=== PATIENT | male | born 1970 ===

== ENCOUNTER 2016-12-24 16:43 | Inpatient (IN) ==
[2016-12-24] MEDS ORDERED: CLINDAMYCIN INJ 900 MG in PREMIX 1 EACH IV STA (17:13)
[2016-12-24] MEDS ORDERED: KETOROLAC 30 MG/1 ML VIAL IV STA (17:13)
[2016-12-24] MEDS ORDERED: ALBUTEROL/IPRATROPIUM 3 ML NEB RESP TX STA (17:17)
[2016-12-24] MEDS ORDERED: methylPREDNISolone SOD SUC 125 MG/2 ML VIAL IV STA (17:17)
--- NOTE | 2016-12-24 17:21 | Emergency Department Note ---
Arrival - Arrival Chief Complaint: Extremity Problem Stated Complaint: TRANSFER PSYCHIATRIC FOR EDEMA E ED Nursing Triage Note: PT TRANSFERRED FROM PSYCHIATRIC FOR EVALUATION OF EDEMA TO [facility]. PT STATES PAIN AND EDEMA HAS BEEN PRESENT X2 MONTHS. PSYCHIATRIC REPORTS UNABLE TO PALPATE A PULSE. PT IS INMATE AT [facility]. PT TOOK COUMADIN FOR HX OF DVT BUT NOT RECEIVING WHILE INCARCERATED Mode of Arrival: Stretcher Limitations: No Limitations Source: Patient Time Seen by Provider: 12/24/16 17:13 - History of Present Illness HPI Narrative: This 46-year-old [place] male inmate presents with a history of left lower extremity pain and swelling as well as redness from the knee down. Of note the patient does have a history of a DVT in that leg and has not been given any anticoagulants although he was taking Coumadin in the past. During the last month the patient has had intermittent chest pains as well as spitting up of some blood. He denies a pleuritic nature to the pain and also denies any history PTE. Associated with this is a sensation of dyspnea. He denies any chills or fever. Onset (ago): month(s) (Patient presents 2 months post onset of left leg problems ) Allergies/Adverse Reactions: Allergies Allergy/AdvReac Type Severity Reaction Status Date / Time No Known Allergies Allergy Verified 12/24/16 16:52 Review of System - Review of System 12 point system: reviewed and no additional remarkable complaints except as stated - Review of System Constitutional: Present: as per HPI Respiratory: Present: as per HPI Cardiovascular: Present: as per HPI Musculoskeletal: Present: as per HPI Medical,Surgical,& Family Hx - Medical History Other: History of: Miscellaneous Medical Problems (DVT) - Social History Smoking Status: Current every day smoker Frequency of Alcohol Use: None Type of Drug Use: None Exam Physical Examination: GENERAL: Well developed, well nourished [place] male in no acute distress. HEENT: Normocephalic. No trauma. Moist mucous membranes. EOMI. PERRLA. ENT NML NECK: Supple. No adenopathy. CARDIAC: Regular. No murmurs. Heart rate 86 CHEST: Clear to auscultation. No respiratory distress. O2 sat 100% ABDOMEN: Soft. Midepigastric tenderness, hypoactive bowel sounds. EXTREMITIES: No trauma. Normal ROM. Swollen, red, tender left lower extremity with positive Homans. S/P right BKA SKIN: No diaphoresis. No rash. NEURO: Alert. Oriented 3. Motor, sensory, vibratory intact. No focal deficits. Vital Signs: Vital Signs Temperature 98.6 F 12/24/16 17:01 Pulse Rate 91 H 12/24/16 17:40 Respiratory Rate 20 12/24/16 17:40 Blood Pressure 134/100 12/24/16 17:01 O2 Sat by Pulse Oximetry 100 12/24/16 16:44 Results - Labs CBC & BMP: 12/24/16 18:05 12/24/16 18:05 Labs: I have reviewed the laboratory and noted its gross normality. - Impressions EKG: Sinus rhythm at 93, normal SC interval and QRS duration. Right axis deviation nonspecific ST changes. No acute injury pattern noted. - Diagnostic Findings Procedure: Ultrasound: image reviewed by me, report reviewed by me (Left lower extremity reveals nonocclusive thrombus of the distal femoral and popliteal veins)
--- NOTE | 2016-12-24 17:46 | EKG Report ---
Stationary ECG Study [facility] ER Test Date: 12/24/2016 5:47:07 PM Pat Name: JAVON HECK Department: Room: Gender: M Secretary Book Keeper: : 1970 Requested by: Alton Lemus Order Number: [id number] Reading MD: ARCADIO RAUSCH Intervals [place] Rate: 93 P: 57 DC: 140 QRS: 105 QRSD: 90 T: -17 QT: 355 QTc: 405 Interpretive Statements SINUS RHYTHM MARKED RIGHT AXIS DEVIATION [id number] pattern, consider RV strain Electronically Signed On 12-24-16 19:24:07 CDT by ARCADIO RAUSCH [email or web address]
[2016-12-24] MEDS ORDERED: KETOROLAC 30 MG/1 ML VIAL ONE (17:51)
[2016-12-24] MEDS ORDERED: methylPREDNISolone SOD SUC 125 MG/2 ML VIAL ONE (17:51)
[2016-12-24] MEDS ORDERED: CLINDAMYCIN INJ 50 ML IV ONE (17:51)
--- NOTE | 2016-12-24 17:53 | XRay Report ---
Portable chest. Indication: Chest pain. Comparison: February 02, 2008. The heart is enlarged and has increased in size. There is left ventricular hypertrophy. The film was obtained in expiration. The pulmonary vasculature is normal. The lung wayne are clear. The osseous structures are unremarkable. Impression: Interval increase in heart size. PROCEDURE INTERPRETED AT [facility] DEPARTMENT OF RADIOLOGY Final Report Signed by: Dr. Connie Durham
[2016-12-24 18:08] LABS: Basophils % 0.3 % (0.0-0.8); Eosinophils # 0.2 10*3/uL (0.0-0.87); Eosinophils % 3.1 % (0.00-10.9); Hematocrit 43.5 VOL% (42.0-52.0); Hemoglobin 15.1 GM/DL (14.0-18.0); Immature Granulocytes % 0.3 %; Immature Granulocytes Absolute 0.02 #; Lymphocytes # 1.7 10*3/uL (1.4-4.0); Lymphocytes % 27.3 % (21.2-54.2); Mean Corpuscular HGB Conc 34.7 GM/DL (32-36); Mean Corpuscular Hemoglobin 33 PG (27-34); Mean Corpuscular Volume 93.5 FL (87-102); Mean Platelet Volume 9.4 FL (9.6-12.0); Monocytes # 0.5 10*3/uL (0.11-0.8); Monocytes % 8.9 % (1.7-12.7); Neutrophils # 3.7 10*3/uL (1.4-7.4); Neutrophils % 60.1 % (38.7-73.9); Platelet Count 173 T/CUMM (130-400); Red Blood Count 4.65 MC/CUMM (3.8-5.5); Red Cell Distribution Width 13.1 % (9.3-17.3); White Blood Count 6.1 T/CUMM (4-12)
[2016-12-24 18:22] LABS: D-Dimer <= 0.5 MG/L FEU; PT Patient Result 10.4 SECS
[2016-12-24 18:36] LABS: Alanine Aminotransferase 23 U/L (16-61); Albumin 4.3 G/DL (3.4-5.0); Alkaline Phosphatase 91 U/L (45-117); Aspartate Amino Transferase 13 U/L (0-37); Blood Urea Nitrogen 13 MG/DL (7-18); Calcium 9.2 MG/DL (8.5-10.1); Glucose 89 MG/DL (74-106); Osmolality,Calculated 281.1 MOS/KG (273-304); Potassium 3.7 MMOL/L (3.5-5.1); Sodium 142 MMOL/L (136-145); Total Protein 8.1 G/DL (6.4-8.3); Troponin I Only < 0.015 NG/ML (0.00-0.045)
--- NOTE | 2016-12-24 19:08 | Ultrasound Report ---
Left lower extremity venous Doppler. Grayscale, color-flow, and spectral analysis performed and interpreted. Indication: Lower extremity swelling and redness. There is nonocclusive thrombus seen in the distal femoral vein and the popliteal vein. The common femoral vein, greater saphenous vein, and proximal and mid superficial femoral vein are patent. Impression: Nonocclusive thrombus of the distal femoral vein and popliteal vein. These findings were discussed with the patient's nurse in the emergency room before dictation. PROCEDURE INTERPRETED AT [facility] DEPARTMENT OF RADIOLOGY Final Report Signed by: Dr. Connie Durham
[2016-12-24] MEDS ORDERED: ONDANSETRON 4 MG/2 ML VIAL IV PRN (20:42)
[2016-12-24] MEDS ORDERED: ACETAMINOPHEN 325 MG TABLET PO PRN (20:42)
[2016-12-24] MEDS ORDERED: ENOXAPARIN 100 MG/ML SYRINGE SUBCUT SCH (21:00)
--- NOTE | 2016-12-24 21:31 | Hospitalist History & Physical ---
Assessment and Plan (1) Cellulitis Status: Acute Current Visit: Yes (2) DVT (deep venous thrombosis) Status: Acute Assessment and plan: Our plan for this patient will be admitting him to our service. We will start him on to floor for cellulitis Coumadin and Lovenox for the DVT. Current Visit: Yes History of Present Illness Chief complaint: Leg pain History of present illness: Mr. Kim is a 46 year old male with past medical history significant for DVT and some knee problems who presents as a transfer from [facility]. Apparently patient is a prisoner there and was previously on Coumadin for a DVT. When patient was incarcerated he no longer took Coumadin. For the past several weeks has been noticing increased swelling and pain. His leg is also reddened. I was consulted to admit the patient for DVT and cellulitis. Allergies Allergy/AdvReac Type Severity Reaction Status Date / Time No Known Allergies Allergy Verified 12/24/16 16:52 Medical,Surgical,& Family Hx - Medical History Other: History of: Miscellaneous Medical Problems (DVT) - Surgical History Orthopedic Surgeries: Surgical HX of;: Orthopedic Surgery - Social History Smoking Status: Current every day smoker Frequency of Alcohol Use: None Type of Drug Use: None 12 point system: reviewed and no additional remarkable complaints except as stated Exam - Constitutional Vitals: Period Temp Pulse Resp BP Sys/Werner Pulse Ox Last 24 Hr 98.6 F-98.6 F 86-93 18-22 134-134/100-100 100 General appearance: normal weight - Head Head exam: Present: normal inspection - Eye Eye exam: Present: EOMI Pupils: Present: RUSS - ENT ENT exam: Present: normal exam - Neck Neck exam: Present: normal inspection - Respiratory Respiratory exam: Present: clear to auscultation bilaterally - Cardiovascular Cardiovascular exam: Present: regular rate and rhythm - GI/Abdominal GI/Abdominal exam: Present: normal bowel sounds - Extremities Exam Extremities exam: Present: other (Left lower extremity is erythematous and with edema) - Back Exam Back exam: Present: normal inspection - Neurological Exam Neurological exam: Present: alert, oriented X3 - Psychiatric Psychiatric exam: Present: normal affect, normal mood - Skin Skin exam: Present: erythema Results - Labs CBC & BMP: 12/24/16 18:05 12/24/16 18:05
[2016-12-24] MEDS ORDERED: WARFARIN 7.5 MG TABLET PO ONE (22:00)
[2016-12-25] MEDS: CEFTAROLINE 600 MG in SODIUM CHLORIDE 0.9% 100 ML IV SCH ×2 (00:18→13:53)
[2016-12-25] MEDS ORDERED: KETOROLAC 30 MG/1 ML VIAL IV PRN (00:27)
[2016-12-25 06:46] LABS: Calcium 8.7 MG/DL (8.5-10.1); Osmolality,Calculated 280.4 MOS/KG (273-304); Potassium 5.3 MMOL/L (3.5-5.1)
[2016-12-25 06:50] LABS: Basophils % 0.1 % (0.0-0.8); Eosinophils % 0.1 % (0.00-10.9); Hematocrit 45.2 VOL% (42.0-52.0); Immature Granulocytes % 0.5 %; Immature Granulocytes Absolute 0.04 #; Lymphocytes # 0.6 10*3/uL (1.4-4.0); Lymphocytes % 7.9 % (21.2-54.2); Mean Corpuscular HGB Conc 35.4 GM/DL (32-36); Mean Corpuscular Hemoglobin 33 PG (27-34); Mean Corpuscular Volume 92.4 FL (87-102); Mean Platelet Volume 11.3 FL (9.6-12.0); Monocytes # 0.2 10*3/uL (0.11-0.8); NRBC # 0.03 10*3/uL; Neutrophils # 6.9 10*3/uL (1.4-7.4); Neutrophils % 89.4 % (38.7-73.9); Platelet Count 131 T/CUMM (130-400); Red Blood Count 4.89 MC/CUMM (3.8-5.5); Red Cell Distribution Width 13.1 % (9.3-17.3); White Blood Count 7.7 T/CUMM (4-12)
[2016-12-25 07:32] LABS: INR 1.1; PT Patient Result 11.3 SECS
--- NOTE | 2016-12-25 08:18 | Hospitalist Progress Note ---
Assessment and Plan - Time spent with patient Time spent with patient: Less than 30 minutes (1) Cellulitis Status: Acute Assessment and plan: Continuing IV antibiotics. He appears to be clinically responding. Current Visit: Yes (2) DVT (deep venous thrombosis) Status: Acute Assessment and plan: We will continue anticoagulation. I will discontinue Lovenox and Coumadin at this time and place him on Xarelto 15 mg p.o. twice daily 21 days and then 20 mg p.o. daily. Current Visit: Yes Hospitalist: Subjective Interval history: Chart reviewed and patient examined. He did have some nausea and emesis last night according to him. His lower extremity swelling has improved. He denies any chest pain or shortness of breath. Exam - Constitutional Vitals: Period Temp Pulse Resp BP Sys/Werner Pulse Ox Last 24 Hr 96.9 F-98.6 F 69-97 18-22 124-178/64-110 92-100 General appearance: no acute distress - Head Head exam: Present: normocephalic, atraumatic - Eye Eye exam: Present: EOMI Pupils: Present: RUSS - ENT ENT exam: Present: normal exam - Neck Neck exam: Present: normal inspection - Respiratory Respiratory exam: Present: clear to auscultation bilaterally. Absent: rales, rhonchi, wheezes - Cardiovascular Cardiovascular exam: Present: regular rate and rhythm. Absent: systolic murmur , tachycardia - GI/Abdominal GI/Abdominal exam: Present: normal bowel sounds, soft. Absent: mass, tenderness , rebound - Extremities Exam Extremities exam: Present: other (Tender swollen left lower extremity) - Back Exam Back exam: Present: normal inspection - Neurological Exam Neurological exam: Present: alert, oriented X3, CN II-XII intact. Absent: motor sensory deficit - Psychiatric Psychiatric exam: Present: normal affect, normal mood. Absent: agitated, anxious - Skin Skin exam: Present: warm, dry. Absent: rash Results - Labs CBC & BMP: 12/25/16 05:52 12/25/16 05:52 Lab Results: I have reviewed the past 24 hour labs
[2016-12-25] MEDS: PANTOPRAZOLE 40 MG TABLET PO SCH (09:10)
[2016-12-25] MEDS: SODIUM CHLORIDE 0.9% 1,000 ML IV SCH ×2 (09:12→18:26)
[2016-12-25] MEDS: RIVAROXABAN 15 MG TABLET PO SCH (16:32)
[2016-12-25] MEDS ORDERED: WARFARIN 7.5 MG TABLET PO SCH (18:00)
[2016-12-25] MEDS: AMOXICILLIN/CLAV 875 MG TABLET PO SCH (20:15)
[2016-12-26 05:45] LABS: Basophils % 0.3 % (0.0-0.8); Eosinophils # 0.1 10*3/uL (0.0-0.87); Eosinophils % 1.3 % (0.00-10.9); Hematocrit 39.4 VOL% (42.0-52.0); Hemoglobin 13.7 GM/DL (14.0-18.0); Immature Granulocytes % 0.1 %; Immature Granulocytes Absolute 0.01 #; Lymphocytes # 2.6 10*3/uL (1.4-4.0); Lymphocytes % 34.6 % (21.2-54.2); Mean Corpuscular HGB Conc 34.8 GM/DL (32-36); Mean Corpuscular Hemoglobin 33 PG (27-34); Mean Platelet Volume 9.6 FL (9.6-12.0); Monocytes # 0.8 10*3/uL (0.11-0.8); Monocytes % 10.6 % (1.7-12.7); Neutrophils % 53.1 % (38.7-73.9); Platelet Count 181 T/CUMM (130-400); Red Blood Count 4.19 MC/CUMM (3.8-5.5); Red Cell Distribution Width 13.1 % (9.3-17.3); White Blood Count 7.5 T/CUMM (4-12)
[2016-12-26 06:13] LABS: Calcium 8.1 MG/DL (8.5-10.1)
[2016-12-26 06:14] LABS: Osmolality,Calculated 282.1 MOS/KG (273-304)
--- NOTE | 2016-12-26 08:24 | Discharge Summary ---
Hospital Course - Hospital Course Hospital Course: 46-year-old male with a past medical history significant DVT who presented with several weeks of increased pain and swelling of his left leg. It was also reddened. He was admitted for possible cellulitis and DVT. Venous Doppler did confirm a nonocclusive thrombus of the distal femoral vein and popliteal vein of the left lower extremity. He was initially placed on Lovenox and Coumadin as well as cultured and placed on IV antibiotics. His white count was normal and he had no fever. He was converted to oral antibiotics and in lieu of Lovenox and Coumadin was placed on Xarelto. He had significant improvement in swelling of his left lower extremity and is remained afebrile and is felt that he had reached maximal benefit from hospital stay and can now be discharged with outpatient follow-up. - Time spent with patient Time with patient DS: Less than 30 minutes Diagnosis - Discharge Diagnosis (1) Cellulitis Status: Acute (2) DVT (deep venous thrombosis) Status: Acute Discharge Plan - Discharge Data Disposition: Disch To Home/Self Care Condition at Discharge: Stable Discharge Diet: advance to your usual diet Activity: resume usual activities as tolerated Hygiene: no restrictions Weight Bearing at Discharge: full weight bearing Driving: no restrictions Contact your physician if you experience:: fever over 101, Redness or swelling, Shortness of breath, pain uncontrolled by pain medications - Discharge Medications New Rivaroxaban [Xarelto] 15 mg PO BID W/MEALS #40 tablet Amoxicillin/Clav Tab [Augmentin Tab] 875 mg PO BID #14 tablet - Follow Up or Referral Follow Up: [facility] [Other] - 3 Days - Forms/Instructions Exam - Constitutional Vitals: Period Temp Pulse Resp BP Sys/Werner Pulse Ox Last 24 Hr 96.8 F-98.1 F 67-86 18-20 100-144/56-96 96-100 General appearance: no acute distress - Head Head exam: Present: normocephalic, atraumatic - Eye Eye exam: Present: EOMI Pupils: Present: RUSS - ENT ENT exam: Present: normal exam - Neck Neck exam: Present: normal inspection - Respiratory Respiratory exam: Present: clear to auscultation bilaterally. Absent: rales, rhonchi, wheezes - Cardiovascular Cardiovascular exam: Present: regular rate and rhythm. Absent: systolic murmur , tachycardia - GI/Abdominal GI/Abdominal exam: Present: normal bowel sounds, soft. Absent: mass, tenderness , rebound - Extremities Exam Extremities exam: Present: full ROM, edema (Edema left lower extremity greater than right). Absent: calf tenderness - Back Exam Back exam: Present: normal inspection - Neurological Exam Neurological exam: Present: alert, oriented X3, CN II-XII intact. Absent: motor sensory deficit - Psychiatric Psychiatric exam: Present: normal affect, normal mood. Absent: agitated, anxious - Skin Skin exam: Present: warm, dry. Absent: erythema Discharge Results Procedures and tests throughout hospitalization: Pending Orders 12/24/16 17:33 Blood Culture Stat Labs on day of discharge: Labs from last 24 hours 12/26/16 12/26/16 05:03 05:03 WBC 7.5 RBC 4.19 Hgb 13.7 L D Hct 39.4 L MCV 94.0 MCH 33 MCHC 34.8 RDW 13.1 Plt Count 181 D MPV 9.6 Neut % (Auto) 53.1 Lymph % (Auto) 34.6 Kay % (Auto) 10.6 Eos % (Auto) 1.3 Baso % (Auto) 0.3 Neut # (Auto) 4.0 Lymph # (Auto) 2.6 Kay # (Auto) 0.8 Eos # (Auto) 0.1 Baso # (Auto) 0.0 Immature Gran % 0.1 Nucleated RBC % 0.0 Immature Gran # 0.01 Nucleated RBCs # 0.00 Sodium 142 Potassium 4.0 Chloride 108 H Carbon Dioxide 25 Anion Gap 13.0 BUN 15 Creatinine 1.20 GFR Calculation 88 BUN/Creatinine Ratio 12.00 Glucose 87 Calculated Osmolality 282.1 Calcium 8.1 L Preliminary micro results at discharge 12/24/16 17:33 Blood Culture - Preliminary Blood No growth at 1 day 12/24/16 17:33 Blood Culture - Preliminary Blood No growth at 1 day - Imaging and Cardiology Procedure: Ultrasound: report reviewed by me DS: Provider Date of admission: 12/24/16 20:42 Primary care physician: . No PCP Attending physician on admission: Napoleon Flores MD Discharging clinician: Michael Burgess Expected date of discharge: 12/26/16
[2016-12-26] MEDS: RIVAROXABAN 15 MG TABLET PO SCH (09:02)
[2016-12-26] MEDS: PANTOPRAZOLE 40 MG TABLET PO SCH (09:02)
[2016-12-26] MEDS: AMOXICILLIN/CLAV 875 MG TABLET PO SCH (09:02)
[2016-12-26] MEDS: SODIUM CHLORIDE 0.9% 1,000 ML IV SCH (09:06)
[2016-12-26 11:39] VITALS: BP 149/91
== END 2016-12-26 12:44 | disposition home or self-care (01) | DRG 300 ==
LOC: EDUNIT# → EDBD → N.ED 16:43 → SUATTDRO 20:42 → N.EDINP 20:42 → N.2E 21:45 → N.3W 21:58 → N.3E 22:16
PROVIDERS: ADMIT Internal Medicine; ATTEND Hospitalist